=== PATIENT | female | born 1970 | race American Indian/Alaskan Native ===

== ENCOUNTER 2016-08-14 14:13 | Outpatient (CLI) | payer SELFPAY ==
--- NOTE | 2016-08-16 08:53 | Vascular Lab Report ---
Left Lower Extremity Venous Duplex Study: Reason for Exam: Left leg pain. Comments on the Right: A limited duplex study was done of the proximal veins of the right lower extremity. All veins visualized are freely compressible without evidence of internal echogenicity. Flow is spontaneous and phasic throughout. No evidence of acute or chronic thrombus is seen in any of the vessels visualized. Comments on the Left: All veins visualized are freely compressible without evidence of internal echogenicity. Flow is spontaneous and phasic throughout. No evidence of acute or chronic thrombus is seen in any of the vessels visualized. Impression: No evidence of acute or chronic deep venous thrombosis in the left lower extremity.
== END 2016-08-14 14:14 | disposition home or self-care (01) ==
LOC: VAS 14:13
PROVIDERS: ATTEND Emergency Medicine
DX: M79.605 Pain in left leg (principal)

== ENCOUNTER 2018-08-22 16:15 | Emergency (ER) | payer OTHER ==
[2018-08-22] MEDS ORDERED: TORADOL IM ONE (19:38)
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
[2018-08-22 20:04] VITALS: BP 133/90
== END 2018-08-22 20:03 | disposition home or self-care (01) ==
LOC: ED 16:15
DX: S16.1XXA Strain of muscle, fascia and tendon at neck level, initial encounter (principal); M79.601 Pain in right arm; M79.602 Pain in left arm; R51 Headache; F17.200 Nicotine dependence, unspecified, uncomplicated; Z88.0 Allergy status to penicillin; Z88.2 Allergy status to sulfonamides; Z88.8 Allergy status to other drugs, medicaments and biological substances; V49.59XA Passenger injured in collision with other motor vehicles in traffic accident, initial encounter; Y93.89 Activity, other specified; Y92.488 Other paved roadways as the place of occurrence of the external cause; Y99.8 Other external cause status
CPT/HCPCS: 96372; 99282; J1885

== ENCOUNTER 2020-10-14 10:28 | Emergency (ER) | payer OTHER ==
[2020-10-14 10:48] VITALS: BP 126/91
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
== END 2020-10-14 13:19 | disposition home or self-care (01) ==
LOC: ED 10:28
DX: R51.9 Headache, unspecified (principal); M54.2 Cervicalgia; M54.5 Low back pain; Z79.899 Other long term (current) drug therapy; V49.49XA Driver injured in collision with other motor vehicles in traffic accident, initial encounter; Y93.89 Activity, other specified; Y92.488 Other paved roadways as the place of occurrence of the external cause; Y99.8 Other external cause status
CPT/HCPCS: 70450; 72100; 72125